=== PATIENT | male | born 1990 | race Hispanic/Latino ===

== ENCOUNTER 2024-08-07 08:04 | Day surgery (SDC) | payer SELFPAY ==
[~2024-08-07] VITALS: Ht 160 cm; Wt 54.5 kg
[2024-08-07 08:15] VITALS: BP 140/91
[2024-08-07 08:37] LABS: BASO% 0.1 % (0-3); HEMATOCRIT 44.9 % (39.0-50.0); IMMATURE GRANULOCYTES 0.2 % (0.0-5.0); LYMPH% 3.9 % (15-41); MEAN CELL VOLUME 85.5 fL CALC (80.0-100.0); MEAN CORPUSCULAR HGB 28.6 pG CALC (26.0-32.0); MEAN CORPUSCULAR HGB CONC 33.4 g/dL CAL (32.0-36.0); MONO% 5.3 % (2-13); NEUT# 15.85 thou/uL (1.82-7.42); NEUT% 90.5 % (42-76); RED BLOOD COUNT 5.25 mill/uL (4.70-6.10); RED CELL DISTRI WIDTH 12.7 % (11.5-15.5)
[2024-08-07 08:37] LABS: URINE BILIRUBIN - DIPSTICK Negative (NEGATIVE); URINE BLOOD DIPSTICK Negative (NEGATIVE); URINE GLUCOSE - DIPSTICK Negative (NEGATIVE); URINE KETONE Negative (NEGATIVE); URINE LEUK ESTERASE Negative (NEGATIVE); URINE NITRITE - DIPSTICK Negative (Negative); URINE PH 6.5 (4.5-8.0); URINE PROTEIN - DIPSTICK 30 mg/dL (NEG-TRACE); URINE SPECIFIC GRAVITY 1.025; URINE UROBILINOGEN - DIPSTICK 0.2 E.U./dL (0.2)
[2024-08-07 08:38] LABS: URINE COLOR Yellow
[2024-08-07] MEDS ORDERED: KETOROLAC TROMETHAMINE 15 MG/ML SDV IV ONE (08:40)
[2024-08-07] MEDS ORDERED: ONDANSETRON HCl 4 MG/2 ML SDV IV ONE (08:40)
[2024-08-07] MEDS ORDERED: SODIUM CHLORIDE 0.9% 1,000 ML IV ONE (08:40)
[2024-08-07 08:44] LABS: URINE MUCUS FEW hpf (NONE-FEW); URINE RBC 0-2 RBC/hpf (0-5); URINE WBC 0-2 WBC/hpf (0-5)
[2024-08-07 08:46] VITALS: BP 126/78
[2024-08-07 08:53] LABS: ALBUMIN 4.6 g/dL (3.2-5.0); BILIRUBIN, TOTAL 0.7 mg/dL (0.2-1.3); CREATININE 0.8 mg/dL (0.7-1.3); POTASSIUM 3.6 mmol/l (3.5-5.1); TOTAL PROTEIN 7.6 g/dL (6.3-8.2)
[2024-08-07] MEDS ORDERED: PIPERACILLIN Sodium-Tazobactam 3.375 GM in SODIUM CHLORIDE 0.9% 100 ML IV ONE (09:00)
[2024-08-07 10:09] VITALS: BP 127/86
[2024-08-07 10:31] VITALS: BP 124/87
[2024-08-07] MEDS ORDERED: LIDOcaine HCl 1% (Local Anesth.) 20 ML VIAL ONE (10:59)
[2024-08-07] MEDS ORDERED: FAMOTIDINE 10MG/ML 2ML SDV IV ONE (11:02)
[2024-08-07] MEDS ORDERED: LACTATED RINGER'S 1,000 ML IV ONE (11:02)
[2024-08-07] MEDS ORDERED: ROCURONIUM BROMIDE 10 MG/ML 5ML VIAL IV ONE (12:07)
[2024-08-07] MEDS ORDERED: PROPOFOL 200 MG/20 ML VIAL IV ONE (12:07)
[2024-08-07] MEDS ORDERED: SUGAMMADEX SODIUM 200 MG/2 ML SDV IV ONE (12:07)
[2024-08-07] MEDS ORDERED: LIDOCAINE HCL 2% 2ML SDV IV ONE (12:07)
[2024-08-07] MEDS ORDERED: SUCCINYLCHOLINE CHLORIDE 20 MG/ML 10ML VIAL IV ONE (12:07)
[2024-08-07] MEDS ORDERED: PERCOCET 5/325M1 TAB PO (12:13)
[2024-08-07] MEDS ORDERED: ACETAMINOPHEN 100 ML IV ONE (12:32)
[2024-08-07] MEDS ORDERED: SODIUM CHLORIDE 1,000 ML BTL IR ONE (13:52)
[2024-08-07] MEDS ORDERED: STERILE WATER FOR IRRIGATION 1,000 ML BTL IR ONE (13:52)
[2024-08-07 15:51] VITALS: BP 133/76
== END 2024-08-07 13:30 | disposition home or self-care (01) | DRG 399 ==
LOC: ED 08:04 → ED-I 09:50 → ED 10:07 → ORM 10:08
PROVIDERS: Family Medicine; ATTEND Surgery
PROC: 0DTJ4ZZ Resection of Appendix, Percutaneous Endoscopic Approach (ICD-10-PCS; principal; 2024-08-07)
DX: K35.80 Unspecified acute appendicitis (principal); Z20.822 Contact with and (suspected) exposure to COVID-19
CPT/HCPCS: J0131; J1885; J2405; J2543; Q9967